=== PATIENT | female | born 1930 | race Caucasian/White ===

== ENCOUNTER 2018-04-25 11:07 | Emergency (ER) | payer MEDICARE ==
[2018-04-25 11:07] VITALS: BMI 33.0
[2018-04-25 11:17] VITALS: O2SAT 98
--- NOTE | 2018-04-25 11:59 | C.PDOC ---
History Of Present Illness 87 y/o F c PMHx anxiety presents for medication refill. Patient states she took her last pill of Alprazolam 0.25mg today and has run out and needs a refill. She denies any somatic complaints. Denies fever, chest pain, dyspnea, nausea, vomiting. Patient states she has called her psychiatrist's office every day for the past 4 days and today but the call won't be picked up. Time Seen by Provider: 04/25/18 11:39 Chief Complaint (Nursing): Psychiatric Evaluation Past Medical History Vital Signs: Last Vital Signs Temp 97.9 F 04/25/18 11:13 Pulse 89 04/25/18 11:13 Resp 20 04/25/18 11:13 BP 128/81 04/25/18 11:13 Pulse Ox 98 04/25/18 11:13 - Medical History PMH: Anxiety, Arthritis, Asthma, Back Problems, Depression, Gastritis, HTN, Osteoporosis Denies: Chronic Kidney Disease Surgical History: Appendectomy, Cholecystectomy Family History: States: Unknown Family Hx - Social History Hx Alcohol Use: No Hx Substance Use: No - Immunization History Hx Tetanus Toxoid Vaccination: No Hx Influenza Vaccination: Yes (2015) Hx Pneumococcal Vaccination: Yes (2013) Review Of Systems Except As Marked, All Systems Reviewed And Found Negative. Constitutional: Negative for: Fever Cardiovascular: Negative for: Chest Pain Physical Exam - Physical Exam Additional Physical Exam Comments: Gen: NAD Head: NC/AT Eyes: No icterus ENT: MMM Neck: Supple CV: Regular rate Lungs: CTA b/l Abd: Soft Skin: No rash Neuro: Alert ED Course And Treatment O2 Sat by Pulse Oximetry: 98 Medical Decision Making Medical Decision Making: [employer]SULTANT checked, stable dose of alprazolam prescribed almost same day every month since September. I called office multiple times, answering machine, no answer. Left message informing office that I will prescribe patient same dose for 1 week and requested they reach out to patient for appointment. Disposition - Disposition Referrals: Nuris Ramirez MD [Medical Doctor] - Disposition: HOME/ ROUTINE Disposition Time: 12:06 Condition: STABLE Prescriptions: ALPRAZolam [Xanax] 0.25 mg PO QID PRN #28 tab PRN Reason: Anxiety Instructions: Alprazolam Forms: Only [place] (Lithuanian) - Clinical Impression Clinical Impression: Medication refill
[2018-04-25 12:28] VITALS: BP 130/71; PULSE 79; RESP 18; TEMP 98
== END 2018-04-25 12:28 | disposition home or self-care (01) ==
LOC: C.ER 11:07
DX: Z76.0 Encounter for issue of repeat prescription (principal); I10 Essential (primary) hypertension; F41.9 Anxiety disorder, unspecified; M81.0 Age-related osteoporosis without current pathological fracture